=== PATIENT | female | born 1975 | race Caucasian/White ===

== ENCOUNTER 2018-04-19 11:04 | Inpatient (IN) | payer OTHER ==
[~2018-04-19] VITALS: Ht 162.6 cm; Wt 102.5 kg
[~2018-04-19 11:04] MED LIST: LISINOPRIL 40 MG; ORE25
[2018-04-19 11:06] VITALS: BP 136/97
--- NOTE | 2018-04-19 11:12 | NUR ---
PT TAKEN IN WHEELCHAIR TO ER BED 03
--- NOTE | 2018-04-19 11:15 | NUR ---
PATIENT PRESENTS TO ED WITH COMPLAINTS OF RLQ PAIN. PATIENT ALSO COMPLAINS OF N/V/D. SKIN IS PINK/WARM/DRY; AAOX4 WITH EVEN AND STEADY GAIT; LUNGS CLEAR BL; HR EVEN AND REGULAR; PT DENIES FEVER, CP, SOB, OR COUGH AT THIS TIME; PATIENT STATES PAIN OF 10/10 AT THIS TIME; VSS; PATIENT POSITIONED FOR COMFORT; HOB ELEVATED; BEDRAILS UP X1; BED DOWN. ER MD MADE AWARE OF PT STATUS.
[2018-04-19] MEDS ORDERED: MORPHINE SULFATE 4 MG/ML SYR IVP ONE (11:35)
[2018-04-19] MEDS ORDERED: NACL 0.9% 1,000 ML IV ONE (11:35)
[2018-04-19 11:48] LABS: BASOPHILS % (AUTO) 0.3 % (0.0-2.0); EOSINOPHILS # (AUTO) 0.1 K/uL (0-0.4); EOSINOPHILS % (AUTO) 1.3 % (0.0-4.0); HEMATOCRIT 41.9 % (36-48); LYMPHOCYTES # (AUTO) 2.4 K/uL (2.5-16.5); LYMPHOCYTES % (AUTO) 23.1 % (20.5-51.1); MEAN CORPUSCULAR HEMOGLOBIN 30 pg (27-31); MEAN CORPUSCULAR HGB CONC 34 g/dL (33-37); MEAN CORPUSCULAR VOLUME 90.1 fL (80-94); MONOCYTES # (AUTO) 0.5 K/uL (0.8-1.0); MONOCYTES % (AUTO) 4.9 % (1.7-9.3); NEUTROPHILS # (AUTO) 7.4 K/uL (1.8-7.7); NEUTROPHILS % (AUTO) 70.4 % (42.2-75.2); PLATELET COUNT (AUTO) 332 K/uL (140-450); RED BLOOD CELL COUNT(AUTO) 4.66 MIL/uL (4.20-5.40); RED CELL DISTRIBUTION WIDTH 13.7 % (11.6-13.7); WHITE BLOOD COUNT (AUTO) 10.5 K/uL (4.8-10.8)
[2018-04-19 12:04] LABS: ALBUMIN 3.6 g/dL (3.4-5.0); ANION GAP 12.5 (8-16); CARBON DIOXIDE 23.3 mmol/L (21-32); CREATININE 1.1 mg/dL (0.6-1.3); POTASSIUM 3.8 mmol/L (3.5-5.1); TOTAL BILIRUBIN 0.4 mg/dL (0.0-1.0)
[2018-04-19 12:31] LABS: BILIRUBIN,URINE NEGATIVE (NEGATIVE); BLOOD, URINE 3+ (NEGATIVE); COLOR,URINE YELLOW (YELLOW); LEUKOCYTE ESTERASE ,URINE TRACE (NEGATIVE); NITRITE, URINE POSITIVE (NEGATIVE); UGLUCOSE NEGATIVE (NEGATIVE)
[2018-04-19 12:34] LABS: APPEARANCE,URINE HAZY (CLEAR)
[2018-04-19 12:38] LABS: RBC,URINE 50-80 /HPF (0-5)
[2018-04-19 12:39] LABS: WBC,URINE 0-5 (RARE) /HPF (0-5)
--- NOTE | 2018-04-19 12:50 | NUR ---
PATIENT BACK FROM CT
[2018-04-19] MEDS ORDERED: cefTRIAXone 1,000 MG VIAL ONE (13:04)
--- NOTE | 2018-04-19 14:00 | NUR ---
Patient appears to be resting comfortably in bed. Vital Signs within normal limits. Respirations even and unlabored.
--- NOTE | 2018-04-19 15:25 | NUR ---
Patient will be admitted to care of DR. PANG. Admited to TELE. Will go to room 105A. Belongings list completed. Report to KASHMIR WALSH.
--- NOTE | 2018-04-19 15:31 | NUR ---
RECEIVED PT REPORT FROM ER NURSE. PT IS AWAKE, ALERT, OX4. AMBULATORY. CC: RLQ ABD PAIN. RECEIVED MORPHINE IN ER. ACCORDING TO ER NURSE, URINE DIP IS NEGATIVE FOR . PAIN 1/10 AT THIS TIME, TOLERABLE. DX SEPSIS 2ND TO UTI. LACTIC ACID 4.9, RECEIVED ROCEPHIN IN ER. IV NOTED TO RIGHT AC 20G, ASYMPTOMATIC. PLACE PT ON TELE. MRSA SCREENING DONE. VITALS TAKEN. INITIAL ASSESSMENT DONE. ORIENTED PT TO ROOM, CALL LIGHT WITHIN REACH. BED IN LOWEST POSITION. WILL CONTINUE TO MONITOR.
[2018-04-19 15:35] VITALS: BP 124/78
[2018-04-19] MEDS ORDERED: ACETAMINOPHEN 325 MG TAB PO PRN (15:35)
[2018-04-19] MEDS ORDERED: NACL 0.9% 2,500 ML IV SCH (15:50)
[2018-04-19] MEDS: NACL 0.9% 1,000 ML IV SCH ×2 (16:01→22:24)
[2018-04-19 16:16] LABS: PROTHROMBIN TIME 10.2 secs (10.8-13.4)
--- NOTE | 2018-04-19 16:20 | NUR ---
PAGED DR STEPHENS. WAITING FOR CALL BACK.
[2018-04-19] MEDS ORDERED: LISI-420 PO (16:36)
[2018-04-19] MEDS ORDERED: NIFE30TE8 PO (16:36)
[2018-04-19 16:37] LABS: FREE T4 (FREE THYROXINE) 0.96 ng/dL (0.76-1.46); MAGNESIUM 1.9 mg/dL (1.8-2.4); PHOSPHORUS 2.8 mg/dL (2.5-4.9); THYROID STIMULATING HORMONE 1.34 uIU/mL (0.34-3.74)
[2018-04-19] MEDS: KETOROLAC 30 MG/ML VIAL IVP PRN (17:14)
[2018-04-19] MEDS ORDERED: MORPHINE SULFATE 4 MG/ML SYR IVP PRN (18:15)
[2018-04-19] MEDS ORDERED: MORPHINE SULFATE 4 MG/ML SYR ONE (18:43)
--- NOTE | 2018-04-19 19:10 | NUR ---
RECE[facility]ED [facility] AT BEDSIDE FOR CONTINUITY OF CARE. PT IS SLEEPING. IV NOTED RAC 20G. NS 150ML/HR. NPO EXCEPT MEDS. AND AWAITING FOR SURGERY COMMERCIAL AGENT TO DAY. CONSENT SIGNED. BED LOWERED CALL LIGHT WITHIN REACH. WILL CONTINUE TO MONITOR.
[2018-04-19] MEDS ORDERED: BUPIVACAINE-MPF 0.5% 30 ML VIAL INJ ONE (19:12)
--- NOTE | 2018-04-19 19:15 | NUR ---
REPORT GIVEN TO WOOD POLE TREATER NURSE. PT IS IN STABLE CONDITION.
--- NOTE | 2018-04-19 19:15 | NUR ---
PT WAS PICKED UP BY OR. PT TELE BOX LEFT ON BED. PT IS OFF THE FLOOR.
[2018-04-19] MEDS ORDERED: ROCURONIUM 50 MG/5 ML VIAL IV ONE (19:22)
[2018-04-19] MEDS ORDERED: SUCCINYLCHOLINE CHLORIDE 200 MG/10 ML VIAL IVP ONE (19:22)
[2018-04-19] MEDS ORDERED: LIDOCAINE 2% 100 MG/5 ML SYR IVP ONE (19:22)
[2018-04-19] MEDS ORDERED: KETOROLAC 30 MG/ML VIAL ONE (19:22)
[2018-04-19] MEDS ORDERED: DEXAMETHASONE 4 MG/ML VIAL ONE (19:22)
[2018-04-19] MEDS ORDERED: DESFLURANE 240 ML BTL INH ONE (19:22)
[2018-04-19] MEDS ORDERED: ONDANSETRON 4 MG/2 ML VIAL ONE (19:22)
[2018-04-19] MEDS ORDERED: PROPOFOL 200 MG/20 ML VIAL IV ONE (19:22)
[2018-04-19] MEDS ORDERED: MIDAZOLAM 2 MG/2 ML VIAL ONE (19:29)
[2018-04-19] MEDS ORDERED: fentaNYL 0.05 MG/ML VIAL ONE (19:30)
[2018-04-19] MEDS ORDERED: ONDANSETRON 4 MG/2 ML VIAL IVP PRN (19:50)
[2018-04-19] MEDS ORDERED: ACETAMINOPHEN/CODEINE 300/30MG 1 TAB PO PRN (19:50)
[2018-04-19] MEDS ORDERED: IBUPROFEN 800 MG TAB PO PRN (19:50)
[2018-04-19 20:00] VITALS: BP 125/67
[2018-04-19] MEDS ORDERED: HYDROmorphone PFS 2 MG/ML SYR ONE (20:23)
[2018-04-19] MEDS: HYDROmorphone 1 MG/ML AMP IVP PRN ×4 (20:32→21:02)
--- NOTE | 2018-04-19 21:10 | NUR ---
RECEIVED REPORT FROM OR SX NURSE YUNIER AT BEDSIDE FOR CONTINUITY OF CARE. PT SLEEPING BUT WAKES UP UPON NAME CALLED. PT HAS IV HANGING NS 300 NEEDED TO BE INFUSED RATE OPEN LINE. PT HAS MORRISON PLACED AND HAS ORDERS FOR 24HR MORRISON PLACEMENT. PT HAS EVER STERILE GAUZE AND TAPE ON LOWER ABD. PT RECEIVED PAIN MEDS IN OR. OVARIAN AND CYST REMOVED. PT IS IN PAIN VITALS 97.5 16RR 99% O2 SAT 73HR 125/67.
--- NOTE | 2018-04-19 21:25 | NUR ---
15MIN POST VITALS 124/76 95% 76
--- NOTE | 2018-04-19 21:40 | NUR ---
30 MIN AFTER ARRIVED TO FLOOR : 117/63 90% 77HR
[2018-04-19] MEDS: DOCUSATE SODIUM 100 MG GELCAP PO SCH (21:47)
[2018-04-19] MEDS: MORPHINE SULFATE 4 MG/ML SYR IM/IVP PRN (21:47)
[2018-04-19] MEDS ORDERED: BLOOD GLUCOSE MONITORING 1 DEV DEV FS SCH (22:00)
--- NOTE | 2018-04-19 22:10 | NUR ---
1HR AFTER 123/73 90% ON RA 76HR
--- NOTE | 2018-04-19 22:40 | NUR ---
1HR 30 MIN AFTER 115/61 92% 80HR
[2018-04-19 23:59] VITALS: BP 118/65
[2018-04-20 04:00] VITALS: BP 112/63
[2018-04-20] MEDS: MORPHINE SULFATE 4 MG/ML SYR IM/IVP PRN (04:03)
[2018-04-20 07:24] LABS: BASOPHILS % (AUTO) 0.2 % (0.0-2.0); HEMATOCRIT 32.7 % (36-48); HEMOGLOBIN 10.6 g/dL (12.0-16.0); LYMPHOCYTES # (AUTO) 1.3 K/uL (2.5-16.5); LYMPHOCYTES % (AUTO) 8.6 % (20.5-51.1); MEAN CORPUSCULAR HEMOGLOBIN 30 pg (27-31); MEAN CORPUSCULAR HGB CONC 32 g/dL (33-37); MEAN CORPUSCULAR VOLUME 92.1 fL (80-94); MONOCYTES # (AUTO) 0.5 K/uL (0.8-1.0); MONOCYTES % (AUTO) 3.5 % (1.7-9.3); NEUTROPHILS # (AUTO) 13.3 K/uL (1.8-7.7); NEUTROPHILS % (AUTO) 87.7 % (42.2-75.2); PLATELET COUNT (AUTO) 317 K/uL (140-450); RED BLOOD CELL COUNT(AUTO) 3.55 MIL/uL (4.20-5.40); RED CELL DISTRIBUTION WIDTH 13.5 % (11.6-13.7); WHITE BLOOD COUNT (AUTO) 15.2 K/uL (4.8-10.8)
--- NOTE | 2018-04-20 07:30 | NUR ---
RECEIVED ON BED AAOX4. NO SOB NOTED. NO C/O PAIN AT THIS TIME. IV TO RT AC PATENT AND INTACT. CHEST, CLEAR. ABDOMEN SOFT, BOWEL SOUNDS PRESENT BUT HYPOACTIVE, ENCOURAGED TO AMBULATE OUT OF BED. NPO MAINTAINED EXCEPT FOR MEDS. WITH MORRISON DRAINING CLEAR DARK ALMA URINE IN SMALL AMOUNTS, WILL CONTINUE TO MONITOR PT. SCD'S IN PLACE. INSTRUCTED PT TO CALL FOR ASSISTANCE, CALL LIGHT WITHIN REACH. PT VERBALIZED UNDERSTANDING.
[2018-04-20 07:41] LABS: CHOL/HDL RATIO 5.2 (1-4.5); MAGNESIUM 1.8 mg/dL (1.8-2.4); PHOSPHORUS 3.5 mg/dL (2.5-4.9)
[2018-04-20 07:48] LABS: ANION GAP 12.3 (8-16); CARBON DIOXIDE 25.7 mmol/L (21-32)
[2018-04-20 08:00] VITALS: BP 123/73
--- NOTE | 2018-04-20 09:00 | NUR ---
MORRISON IS DRAINING MODERATE AMOUNTS OF CLEAR ALMA URINE NOW.
[2018-04-20] MEDS: NACL 0.9% 1,000 ML IV SCH ×3 (09:03→18:24)
[2018-04-20] MEDS: DOCUSATE SODIUM 100 MG GELCAP PO SCH ×2 (09:04→20:57)
[2018-04-20] MEDS: LISINOPRIL 20 MG TAB PO SCH (09:05)
[2018-04-20] MEDS: LACTOBACILLUS RHAMNOSUS GG 1 EACH CAP PO SCH (09:05)
[2018-04-20] MEDS: NIFEdipine 30 MG TABER PO SCH (09:06)
[2018-04-20] MEDS: HYDROCHLOROTHIAZIDE 25 MG TAB PO SCH (09:09)
[2018-04-20] MEDS: KETOROLAC 30 MG/ML VIAL IVP PRN ×2 (09:12→12:50)
--- NOTE | 2018-04-20 11:00 | NUR ---
PHYSICAL THERAPY ON GOING AT THE BEDSIDE.
[2018-04-20 12:00] VITALS: BP 122/81
[2018-04-20] MEDS ORDERED: MORPHINE SULFATE 2 MG/ML SYR IVP PRN (12:30)
[2018-04-20] MEDS ORDERED: INSULIN LISPRO SLIDING SCALE 100 UNITS/ML VIAL SUBQ PRN (12:30)
[2018-04-20] MEDS ORDERED: DEXTROSE 50% 50 ML SYR IVP PRN (12:45)
--- NOTE | 2018-04-20 13:20 | NUR ---
PT SITTING AT THE SIDE OF THE BED, ACTIVITY TOLERATED FAIR. Addendum: 04/20/18 at 1856 by Myriam Mackay RN ACTIVITY TOLERATED FAIRLY.
--- NOTE | 2018-04-20 15:15 | NUR ---
OFFERED ICE CHIPS, PT TOLERATED WELL, NO N&V NOTED.
[2018-04-20] MEDS: BLOOD GLUCOSE MONITORING 1 DEV DEV FS SCH ×2 (17:01→20:56)
--- NOTE | 2018-04-20 17:15 | NUR ---
PT TALKING TO FAMILY AT THE BEDSIDE. NO COMPLAINTS MADE.
[2018-04-20] MEDS: HYDROcodone/APAP 5/325 MG 1 TAB TAB PO PRN (18:01)
--- NOTE | 2018-04-20 19:25 | NUR ---
PT TALKING TO FAMILY MEMBERS. NO SOB NOTED. NO COMPLAINTS MADE. WILL ENDORSE TO NEXT SHIFT NURSE FOR CONTINUITY OF CARE.
--- NOTE | 2018-04-20 19:30 | NUR ---
RECEIVED REPORT FROM DAY NURSE AT BEDSIDE FOR TRANSFER OF CARE. PT IN STABLE CONDITION. PT HAD FAMILY AT BEDSIDE, PT IN LOW BED WITH SIDE RAILS UP X2. SHE IS ALERT AND ORIENTED X4 AND UPPER SORBIAN SPEAKING. SHE SITTING IN BED WITH HOB UP 45%. IV FLUSHED PATENT AND RUNNING N/S AT 150. PT DRESSING DRY AND INTACT AT THIS TIME, PT HAS NO C/O VOICED JUST C/O ABOUT A LOT OF GAS AND BLOATING. PT EDUCATED REGARDING POST SURGICAL GAS.
--- NOTE | 2018-04-20 21:00 | NUR ---
PT FINGER STICK WAS 189 HOWEVER PT REFUSED INSULIN COVERAGE.
[2018-04-21] MEDS: NACL 0.9% 1,000 ML IV SCH ×3 (01:04→13:14)
[2018-04-21] MEDS: HYDROcodone/APAP 5/325 MG 1 TAB TAB PO PRN ×4 (01:05→15:21)
--- NOTE | 2018-04-21 02:00 | NUR ---
PT AMBULATED INDEPENDENTLY TO TOILET AND PASSED SOME GAS BUT NO BM YET. BOWEL SOUNDS ACTIVE ALL 4 QUADS.
[2018-04-21] MEDS: BLOOD GLUCOSE MONITORING 1 DEV DEV FS SCH ×2 (05:18→11:30)
--- NOTE | 2018-04-21 05:36 | NUR ---
PT FINGERSTICK WAS 202 HOWVWER SHE REFUSED INSULIN COVERAGE AT THIS TIME. PT C/O 05/19 PAIN AND REQUESTED NORCO FOR PAIN REFLEIF. LABS DRAWN AT BEDSIDE. PT SLOWLY AMBULATING TO BATHROOM.
[2018-04-21 06:00] VITALS: BP 125/74
--- NOTE | 2018-04-21 07:15 | NUR ---
TRANSFER OF CARE TO DAYSHIFT NURSE JAMES RN PT IN STABLE CONDITION
--- NOTE | 2018-04-21 07:16 | NUR ---
RECEIVED BEDSIDE REPORT FROM BARBER APPRENTICE NURSE. PATIENT IS SLEEPING. NO SIGNS OF DISTRESS ON ROOM AIR. PATIENT IS S/P OOPHORECTOMY. ABDOMINAL DRESSING IS CLEAN, DRY AND INTACT. IV ON L HAND 20G INFUSING NS AT 150. IV IS CLEAN, DRY AND INTACT. BED IN LOW POSITION. CALL LIGHT WITHIN REACH. WILL CONTINUE TO MONITOR THE PATIENT.
[2018-04-21 07:32] LABS: BASOPHILS # (AUTO) 0.1 K/uL (0.00-0.22); BASOPHILS % (AUTO) 0.5 % (0.0-2.0); EOSINOPHILS # (AUTO) 0.1 K/uL (0-0.4); EOSINOPHILS % (AUTO) 0.5 % (0.0-4.0); HEMATOCRIT 27.3 % (36-48); HEMOGLOBIN 9.4 g/dL (12.0-16.0); LYMPHOCYTES # (AUTO) 2.7 K/uL (2.5-16.5); LYMPHOCYTES % (AUTO) 22.2 % (20.5-51.1); MEAN CORPUSCULAR HEMOGLOBIN 31 pg (27-31); MEAN CORPUSCULAR HGB CONC 34 g/dL (33-37); MEAN CORPUSCULAR VOLUME 90.4 fL (80-94); MONOCYTES # (AUTO) 0.7 K/uL (0.8-1.0); NEUTROPHILS # (AUTO) 8.7 K/uL (1.8-7.7); NEUTROPHILS % (AUTO) 70.8 % (42.2-75.2); PLATELET COUNT (AUTO) 267 K/uL (140-450); RED BLOOD CELL COUNT(AUTO) 3.02 MIL/uL (4.20-5.40); RED CELL DISTRIBUTION WIDTH 13.5 % (11.6-13.7); WHITE BLOOD COUNT (AUTO) 12.3 K/uL (4.8-10.8)
[2018-04-21 07:47] LABS: ANION GAP 14.7 (8-16); CARBON DIOXIDE 23.9 mmol/L (21-32); CREATININE 0.7 mg/dL (0.6-1.3); POTASSIUM 3.6 mmol/L (3.5-5.1)
[2018-04-21 08:00] VITALS: BP 139/74
--- NOTE | 2018-04-21 08:34 | NUR ---
PATIENT HAS BEEN SCREENED AND CATEGORIZED HIGH NUTRITION RISK. PATIENT WILL BE SEEN WITHIN 1-2 DAYS OF ADMISSION. 04/20/18 04/21/[address]
[2018-04-21] MEDS: LACTOBACILLUS RHAMNOSUS GG 1 EACH CAP PO SCH (09:44)
[2018-04-21] MEDS: LISINOPRIL 20 MG TAB PO SCH (09:44)
[2018-04-21] MEDS: HYDROCHLOROTHIAZIDE 25 MG TAB PO SCH (09:45)
[2018-04-21] MEDS: DOCUSATE SODIUM 100 MG GELCAP PO SCH (09:46)
[2018-04-21] MEDS: NIFEdipine 30 MG TABER PO SCH (09:46)
--- NOTE | 2018-04-21 09:51 | NUR ---
ADMINISTERED MEDS. PATIENT TOLERATED WELL. SHE REFUSED HEPARIN. EXPLAINED THE RISKS. SHE STILL REFUSED. BED IN LOW POSITION. CALL LIGHT WITHIN REACH. WILL CONTINUE TO MONITOR THE PATIENT.
--- NOTE | 2018-04-21 12:55 | NUR ---
ADMINISTERED MEDS. PATIENT TOLERATED WELL. IV IS CLEAN, DRY AND INTACT. BED IN LOW POSITION. CALL LIGHT WITHIN REACH. WILL CONTINUE TO MONITOR THE PATIENT.
--- NOTE | 2018-04-21 13:00 | NUR ---
CLEANSED WOUND WITH NS, PAT DRY AND CHANGED DRESSING. PATIENT TOLERATED WELL. BED IN LOW POSITION. WILL CONTINUE TO MONITOR
--- NOTE | 2018-04-21 14:09 | NUR ---
FAXED OPERATIVE REPORT AND PROGRESS NOTE TO ALDA [phone] PHONE [phone] X [phone] [place]. CALLED HOLLY AND INFORMED HER PATIENT IS BEING DISCHARGED TODAY.
--- NOTE | 2018-04-21 14:17 | NUR ---
FAXED ;OPERATIVE REPORT AND PROGRESS NOTE TO ALDA [phone] PHONE [phone] HO[place], EX [phone]. I CALLED HOLLY AND INFORMED HER PATIENT WAS BEING DISCHARGED TODAY.
[2018-04-21] MEDS ORDERED: LEVO750T2 PO (14:53)
[2018-04-21] MEDS ORDERED: ACET-9525 PO (14:53)
--- NOTE | 2018-04-21 16:29 | NUR ---
EDUCATED PATIENT ON DISEASE PROCESS. HOW TO CARE FOR HER WOUND. ABN S/SX AND WHEN TO GO TO THE NEAREST ER. EDUCATED HER ON MEDS. EXPLAINED TO HER HER FOLLOW UP APPOINTMENTS. ALL PAPER WORK SIGNED. PATIENT VERBALIZED UNDERSTANDING. REMOVED IV. IV TIP IS INTACT. REMOVED ID BANDS. PATIENT IS GATHERING HER BELONGINGS AND WILL CHANGE AND WILL AWAIT HER RIDE. BED IN LOW POSITION. WILL CONTINUE TO MONITOR THE PATIENT.
--- NOTE | 2018-04-21 16:45 | NUR ---
PATIENT LEFT WITH DAUGHTER AND [employer] WEBSPHERE COMMERCE DEVELOPER IN STABLE CONDITION. SHE LEFT IN A WHEELCHAIR
== END 2018-04-21 16:45 | disposition home or self-care (01) | DRG 513 ==
LOC: MED 11:04 → MTU 14:42
PROVIDERS: ADMIT Family Medicine; ATTEND Family Medicine
PROC: 0UB00ZZ Excision of Right Ovary, Open Approach (ICD-10-PCS; principal; 2018-04-19 19:30)
DX: D27.0 Benign neoplasm of right ovary (principal); N17.0 Acute kidney failure with tubular necrosis; E66.01 Morbid (severe) obesity due to excess calories; E87.1 Hypo-osmolality and hyponatremia; E87.2 Acidosis; R65.10 Systemic inflammatory response syndrome (SIRS) of non-infectious origin without acute organ dysfunction; N83.511 Torsion of right ovary and ovarian pedicle; N39.0 Urinary tract infection, site not specified; I10 Essential (primary) hypertension; E11.9 Type 2 diabetes mellitus without complications; R19.09 Other intra-abdominal and pelvic swelling, mass and lump; K21.9 Gastro-esophageal reflux disease without esophagitis; Z68.38 Body mass index [BMI] 38.0-38.9, adult; Z90.49 Acquired absence of other specified parts of digestive tract
CPT/HCPCS: 36415; 71045; 76705; 76856; 80048; 80053; 81001; 81025; 82150; 82948; 83036; 83605; 83690; 83735; 84100; 84439; 84443; 84484; 85025; 85610; 85730; 87040; 87081; 87086; 87186; 88307; 93005; 96374; 97110; 99285; J0330; J0696; J1100; J1170; J1644; J1815; J1885; J2001; J2250; J2270; J2405; J2704; J3010; J3490; J7030; J7060; Q0092

== ENCOUNTER 2018-04-27 21:28 | Emergency (ER) | payer OTHER ==
[~2018-04-27] VITALS: Ht 162.6 cm; Wt 103.4 kg
[~2018-04-27 21:28] MED LIST changes: +ACET-9525 PO; +LEVO750T2 PO; +LISI-420 PO; -LISINOPRIL 40 MG; +NIFE30TE8 PO
[2018-04-27 21:35] VITALS: BP 141/71
--- NOTE | 2018-04-27 21:42 | NUR ---
PT AMBULATED TO ER BED 02
--- NOTE | 2018-04-27 21:45 | NUR ---
42 y/o f w/c/o 8 DAYS S/P-OP OVARIAN CYST REMOVAL. EVER WERE REMOVED DURING OFFICE VISIT TODAY BY PMD. PT C/O DRAINAGE FROM INCISION SITE, AND SMALL DEHICENCE SINCE TODAY S/P STAPLE REMOVAL. NO BLEEDING OR DRAINAGE NOTED. ER MADE AWARE.
[2018-04-27 22:30] VITALS: BP 110/66
--- NOTE | 2018-04-27 22:30 | NUR ---
Patient discharged with v/s stable. Written and verbal after care instructions given and explained. Patient alert, oriented and verbalized understanding of instructions. Ambulatory with steady gait. All questions addressed prior to discharge. ID band removed. Patient advised to follow up with PMD TOMORROW OR RETURN BACK IF CONDITION WORSENS. Rx of KEFLEX, AND NORCO given. Patient educated on indication of medication including possible reaction and side effects. Opportunity to ask questions provided and answered.
== END 2018-04-27 22:30 | disposition home or self-care (01) ==
LOC: MED 21:28
DX: Z48.01 Encounter for change or removal of surgical wound dressing (principal); E11.9 Type 2 diabetes mellitus without complications; I10 Essential (primary) hypertension; Z79.899 Other long term (current) drug therapy
CPT/HCPCS: 99283

== ENCOUNTER 2018-07-05 01:33 | Inpatient (IN) | payer OTHER ==
[~2018-07-05] VITALS: Ht 162.6 cm; Wt 86.2 kg
--- NOTE | 2018-07-05 01:42 | NUR ---
PT TAKEN TO BED 2
[2018-07-05 01:46] VITALS: BP 128/89
--- NOTE | 2018-07-05 02:03 | NUR ---
Dr. Daniel evaluating patient at bedside. Female Tooling Supervisor accompanied female patient for Rectal Exam.
[2018-07-05] MEDS ORDERED: metroNIDAZOLE 500 MG/NS PREMIX 100 ML IV ONE (02:10)
[2018-07-05] MEDS ORDERED: ONDANSETRON 4 MG/2 ML VIAL IVP ONE (02:10)
[2018-07-05] MEDS ORDERED: MORPHINE SULFATE 4 MG/ML SYR IVP ONE ×2 (02:10→03:25)
--- NOTE | 2018-07-05 03:08 | NUR ---
PT BIB FAMILY FOR RECTAL PAIN THAT HAS BEEN INTERMITTENT SINCE APRIL. PT REPORTS WORSENING PAIN TONIGHT THAT WAS "UNBEARABLE". PT STATES PAIN STARTED AFTER COLONOSCOPY. PT DENIES BLEEDING TO RECTUM. PT IS LAYING IN BED, FACIAL GRIMACING, FAMILY AT BEDSIDE. PMH HTN, DM
[2018-07-05] MEDS ORDERED: NACL 0.9% 1,000 ML IV SCH (03:09)
[2018-07-05] MEDS ORDERED: ONDANSETRON 4 MG/2 ML VIAL IVP PRN (03:10)
[2018-07-05] MEDS ORDERED: HYDROcodone/APAP 7.5/325 MG 1 TAB PO PRN (03:10)
[2018-07-05] MEDS ORDERED: ACETAMINOPHEN 325 MG TAB PO PRN (03:10)
[2018-07-05 03:21] LABS: BASOPHILS % (AUTO) 0.3 % (0.0-2.0); EOSINOPHILS # (AUTO) 0.1 K/uL (0-0.4); EOSINOPHILS % (AUTO) 0.7 % (0.0-4.0); HEMOGLOBIN 11.7 g/dL (12.0-16.0); LYMPHOCYTES # (AUTO) 2.3 K/uL (2.5-16.5); LYMPHOCYTES % (AUTO) 18.6 % (20.5-51.1); MEAN CORPUSCULAR HEMOGLOBIN 30 pg (27-31); MEAN CORPUSCULAR HGB CONC 34 g/dL (33-37); MEAN CORPUSCULAR VOLUME 86.4 fL (80-94); MONOCYTES # (AUTO) 0.7 K/uL (0.8-1.0); MONOCYTES % (AUTO) 5.3 % (1.7-9.3); NEUTROPHILS # (AUTO) 9.2 K/uL (1.8-7.7); NEUTROPHILS % (AUTO) 75.1 % (42.2-75.2); PLATELET COUNT (AUTO) 281 K/uL (140-450); RED BLOOD CELL COUNT(AUTO) 3.94 MIL/uL (4.20-5.40); RED CELL DISTRIBUTION WIDTH 14.4 % (11.6-13.7); WHITE BLOOD COUNT (AUTO) 12.3 K/uL (4.8-10.8)
[2018-07-05 03:38] LABS: ALBUMIN 3.7 g/dL (3.4-5.0); ANION GAP 10.9 (8-16); CARBON DIOXIDE 28.2 mmol/L (21-32); CREATININE 0.8 mg/dL (0.6-1.3); TOTAL BILIRUBIN 0.8 mg/dL (0.0-1.0)
[2018-07-05 03:41] LABS: POTASSIUM 2.1 mmol/L (3.5-5.1)
[2018-07-05 03:54] LABS: CHOL/HDL RATIO 3.1 (1-4.5); FREE T4 (FREE THYROXINE) 1.22 ng/dL (0.76-1.46); MAGNESIUM 1.8 mg/dL (1.8-2.4); PHOSPHORUS 2.5 mg/dL (2.5-4.9); THYROID STIMULATING HORMONE 1.37 uIU/mL (0.34-3.74)
[2018-07-05] MEDS ORDERED: LISI-420 PO (03:55)
[2018-07-05] MEDS ORDERED: ORE25 PO (03:55)
--- NOTE | 2018-07-05 04:00 | NUR ---
Patient will be admitted to care of DR BARDALES. Admited to TELE. Will go to room 104-B. Belongings list completed. Report to KASHMIR MAR.
[2018-07-05 04:05] VITALS: BP 116/68
--- NOTE | 2018-07-05 04:05 | NUR ---
PT ARRIVED ON UNIT VIA GURNEY, PT AMBULATED TO BED, TOLERATED WELL, RECEIVED BEDSIDE REPORT FROM ER NURSE CAITLYN MARLOW, PT STABLE, NO DISTRESS NOTED, DROWSY, PT ON ROOM AIR, NO SOB, IV TO R AC 20G PATENT, INTACT, FAMILY AT BEDSIDE, ORIENT PT TO ROOM, BED, CALL LIGHT, PHONE, PT STATED UNDERSTANDING, MRSA SWAB TAKEN, V/S TAKEN WNL, INITIAL ASSESSMENT DONE, ALL SAFETY PRECAUTION MET, WILL CONTINUE TO MONITOR.
[2018-07-05] MEDS ORDERED: NACL 0.9% 1,000 ML IV ONE (04:10)
[2018-07-05] MEDS ORDERED: KCL 20 MEQ/WATER INJ PREMIX 200 ML IV SCH (04:15)
[2018-07-05] MEDS ORDERED: POTASSIUM CHLORIDE 10 MEQ TABER PO ONE (04:30)
[2018-07-05] MEDS ORDERED: POTASSIUM CHLORIDE 10 MEQ TABER PO SCH (04:30)
--- NOTE | 2018-07-05 04:39 | NUR ---
MEDICATION ORDERED GIVEN, PT TOLERATED WELL, NO DISTRESS NOTED, CALL LIGHT WITHIN REACH, WILL CONTINUE TO MONITOR.
--- NOTE | 2018-07-05 05:07 | NUR ---
PT STATED FEELING PAIN, CALLED DR. PATTEN REGARDING PT PAIN, STATED UNDERSTANDING AND WILL ORDER MEDICATION.
[2018-07-05] MEDS ORDERED: KETOROLAC 30 MG/ML VIAL IM PRN (05:10)
--- NOTE | 2018-07-05 05:28 | NUR ---
TORADOL ORDERED FOR PT PAIN, PHARMACY STILL HAS NOT VERIFIED IT, OVERWRITE MEDICATION ON PYXIS.
[2018-07-05] MEDS ORDERED: KETOROLAC 30 MG/ML VIAL ONE (05:31)
--- NOTE | 2018-07-05 05:31 | NUR ---
PAIN MEDICATION GIVEN PER MD ORDER, PT COMPLAINING OF PAIN 04/19. NO DISTRESS NOTED, PT TOLERATED WELL, CALL LIGHT WITHIN REACH, WILL CONTINUE TO MONITOR.
[2018-07-05] MEDS: DEXT 5% / NACL 0.9% 500 ML IV SCH ×4 (05:51→20:10)
--- NOTE | 2018-07-05 07:22 | NUR ---
RECEIVED REPORT FROM NIGHTSHIFT NURSE AT BEDSIDE. PATIENT IS AWAKE AT THIS TIME. PATIENT HAS IV ACCESS ON HER RIGHT AC 20G RUNNING POTASSIUM AND NORMAL SALINE. NO DISTRESS NOTED. NO PAIN NOTED AT THIS TIME. PATIENT IS ALERT AND ORIENTED X4. UPDATED BOARD IN PATIENT'S ROOM. LOWERED BED TO LOWEST SETTING. WILL CONTINUE TO MONITOR PATIENT.
--- NOTE | 2018-07-05 07:22 | NUR ---
ENDORSED PT TO DAY SHIFT NURSE KWABENA RN, PT IN STABLE CONDITION, NO DISTRESS NOTED, CALL LIGHT WITHIN REACH.
[2018-07-05 08:00] VITALS: BP 95/59
[2018-07-05] MEDS: LACTOBACILLUS RHAMNOSUS GG 1 EACH CAP PO SCH (08:23)
[2018-07-05] MEDS: DOCUSATE SODIUM 100 MG GELCAP PO SCH ×2 (08:23→20:08)
--- NOTE | 2018-07-05 08:23 | NUR ---
PATIENT PRESENTS WITH NAUSEA. ADMINISTERED ZOFRAN TO PATIENT.
[2018-07-05] MEDS ORDERED: HYDROCHLOROTHIAZIDE 25 MG TAB PO SCH (09:00)
[2018-07-05] MEDS: LISINOPRIL 20 MG TAB PO SCH (09:00)
[2018-07-05] MEDS ORDERED: metroNIDAZOLE 500 MG/NS PREMIX 100 ML IV SCH (11:00)
--- NOTE | 2018-07-05 11:05 | NUR ---
PT LEFT THE UNIT FOR CT VIA WHEELCHAIR IN STABLE CONDITION.
[2018-07-05 11:17] LABS: ANION GAP 8.3 (8-16); CARBON DIOXIDE 31.3 mmol/L (21-32); CREATININE 0.9 mg/dL (0.6-1.3); POTASSIUM 3.6 mmol/L (3.5-5.1)
[2018-07-05 12:00] VITALS: BP 108/67
--- NOTE | 2018-07-05 13:00 | NUR ---
NO DISTRESS AT THIS TIME. WILL CONTINUE TO MONITOR PATIENT.
--- NOTE | 2018-07-05 15:09 | NUR ---
PT RESTING AT THIS TIME. NO DISTRESS NOTED. WILL CONTINUE TO MONITOR PATIENT.
[2018-07-05 16:00] VITALS: BP 105/53
--- NOTE | 2018-07-05 17:29 | NUR ---
PATIENT FAMILY MEMBER AT BEDSIDE. PATIENT IS RESTING AT THIS TIME. WILL CONTINUE TO MONITOR PATIENT.
[2018-07-05] MEDS ORDERED: MORPHINE SULFATE 2 MG/ML SYR IVP PRN (17:50)
--- NOTE | 2018-07-05 19:20 | NUR ---
GAVE REPORT TO NIGHTSHIFT NURSE. PATIENT IN STABLE CONDITION.
--- NOTE | 2018-07-05 19:25 | NUR ---
RECEIVED REPORT FROM KWABENA MARLOW DAYSHIFT NURSE AT BEDSIDE FOR CONTINUITY OF CARE, PT IN STABLE CONDITION, FAMILY AT BEDSIDE.
[2018-07-05 20:00] VITALS: BP 108/66
--- NOTE | 2018-07-05 20:30 | NUR ---
PT SITTING IN BED WITH C/O OF 7/10 PAIN IN HER RECTUM. PT SAID THAT SHE FELT READY TO HAVE A BM AND WAS CONCERNED THAT IT WOULD HURT HER EVEN MORE, PT GIVEN PRN MORPHINE IV PUSH. PT HAS HYPERACTIVE BOWEL SOUNDS IN ALL 4 QUADS. SHE ATE ONLY 1/3 OF HER DINNER BECAUSE SHE SAID THAT SHE KNOW THAT HAVING A BM WOULD HURT. V/S FOLLOWS T 98.2 P 61 R 20 B/P 108/66 02 96 WITH R/A. BED IN LOW POSITION, CALL JEFFERS IN REACH AND FAMILY AT BEDSIDE.
[2018-07-05] MEDS: HYDROcodone/APAP 10/325 MG 1 TAB TAB PO PRN (22:29)
--- NOTE | 2018-07-05 22:30 | NUR ---
PT HAD A MEDIUM LOOSE BM, NO BLEEDING NOTED. PT AMBULATED TO THE BED AND C/O 5/10 PAIN IN RECTUM. PT GIVEN NORCO 10/325MG WILL CONTINUE TO MONITOR PT FOR PAIN AND BLEEDING. PT REMINDED ABOUT THE NPO STATUS AFTER MIDNIGHT.
[2018-07-06] VITALS: BP 104/59
--- NOTE | 2018-07-06 00:30 | NUR ---
PT IN BED ASLEEP IV RUNNING D5 AND N/S ORDERED NO S/S OF PAIN OR DISTRESS NOTED. V/S FOLLOWS T 98.3 P82 R 18 B/P 118/70 02 98% ON R/A. PT GIVEN ANOTHER BLANKET REQUESTED, CALL JEFFERS IN REACH.
[2018-07-06] MEDS: DEXT 5% / NACL 0.9% 500 ML IV SCH ×2 (01:15→05:46)
--- NOTE | 2018-07-06 02:00 | NUR ---
PT ASLEEP IN LOW BED WITH SIDE RAILS UP X2, NO S/S OF PAIN OR DISTRESS NOTED. IV SITE INTACT AND RUNNING D5 AND N/S AT 100MLS/HR.
[2018-07-06] MEDS: metroNIDAZOLE 500 MG/NS PREMIX 100 ML IV SCH ×3 (05:42→21:00)
--- NOTE | 2018-07-06 05:51 | NUR ---
PT AMBULATED TO THE BATHROOM AND BACK NO C/O VOICED FLAGYL RUNNING PIGGYBACK AT 100MLS/HR NO ADVERSE EFFECTS.
[2018-07-06 05:54] LABS: BASOPHILS % (AUTO) 0.4 % (0.0-2.0); EOSINOPHILS # (AUTO) 0.1 K/uL (0-0.4); EOSINOPHILS % (AUTO) 1.8 % (0.0-4.0); HEMATOCRIT 30.6 % (36-48); HEMOGLOBIN 10.6 g/dL (12.0-16.0); LYMPHOCYTES % (AUTO) 24.7 % (20.5-51.1); MEAN CORPUSCULAR HEMOGLOBIN 30 pg (27-31); MEAN CORPUSCULAR HGB CONC 35 g/dL (33-37); MEAN CORPUSCULAR VOLUME 86.7 fL (80-94); MONOCYTES # (AUTO) 0.6 K/uL (0.8-1.0); MONOCYTES % (AUTO) 7.7 % (1.7-9.3); NEUTROPHILS # (AUTO) 5.2 K/uL (1.8-7.7); NEUTROPHILS % (AUTO) 65.4 % (42.2-75.2); PLATELET COUNT (AUTO) 220 K/uL (140-450); RED BLOOD CELL COUNT(AUTO) 3.53 MIL/uL (4.20-5.40); RED CELL DISTRIBUTION WIDTH 14.5 % (11.6-13.7); WHITE BLOOD COUNT (AUTO) 7.9 K/uL (4.8-10.8)
[2018-07-06 06:15] LABS: MAGNESIUM 2.1 mg/dL (1.8-2.4); PHOSPHORUS 2.4 mg/dL (2.5-4.9)
[2018-07-06 06:19] LABS: ANION GAP 6.7 (8-16); CARBON DIOXIDE 32.9 mmol/L (21-32); CREATININE 0.8 mg/dL (0.6-1.3); POTASSIUM 3.6 mmol/L (3.5-5.1)
--- NOTE | 2018-07-06 07:05 | NUR ---
RECEIVED REPORT FROM OPTOMETRY PROFESSOR NURSE. PT LYING COMFORTABLY IN BED, NO SIGNS OF DISTRESS, RESPIRATIONS EVEN & UNLABORED. WILL CONTINUE TO MONITOR.
[2018-07-06 08:00] VITALS: BP 111/65
--- NOTE | 2018-07-06 09:03 | NUR ---
PATIENT HAS BEEN SCREENED AND CATEGORIZED MODERATE NUTRITION RISK. PATIENT WILL BE SEEN WITHIN 3-5 DAYS OF ADMISSION. 07/07/18 07/09/[address]
--- NOTE | 2018-07-06 09:09 | NUR ---
CM NOTE INITIAL REVIEW, ADMITTING ORDER, H&P, CONSULTATION NOTE, LIST OF MEDS, FAXED TO ALDA [phone] # [phone] HO[place] EXT [phone]
[2018-07-06] MEDS: LACTOBACILLUS RHAMNOSUS GG 1 EACH CAP PO SCH (09:21)
[2018-07-06] MEDS: HYDROCHLOROTHIAZIDE 25 MG TAB PO SCH (09:21)
[2018-07-06] MEDS: DOCUSATE SODIUM 100 MG GELCAP PO SCH ×2 (09:21→21:32)
[2018-07-06] MEDS: LISINOPRIL 20 MG TAB PO SCH (09:22)
[2018-07-06] MEDS: DEXT 5% /NACL 0.9% 1,000 ML IV SCH ×2 (10:54→20:54)
--- NOTE | 2018-07-06 12:22 | NUR ---
PT NOW DECIDED TO GO WITH DR CHEATHAM FOR SURGERY, DR GOODWIN MADE AWARE.
--- NOTE | 2018-07-06 14:25 | NUR ---
Community Affairs Manager Note: Director of Telemetry and Med/Surg Joann came to Case Management/Community Affairs Manager office and informed myself and case making machine operator Ira patient had expressed having a concern regarding . Director Joann stated she was following up regarding this matter and wanted to make us aware of situation.
--- NOTE | 2018-07-06 15:30 | NUR ---
Care Program Resident Note: I met with patient at bedside. Patient stated she did not want to be her physician because she felt that he was not attentive to her needs and concerns. I told her that our Administration Dept and/social work therapist of Telemetry/Med Surg Joann are following up regarding her concern and will meet with her today to discuss this matter and offer solution/s. She verbalized understanding and thanked me for meeting with her.
--- NOTE | 2018-07-06 15:56 | NUR ---
Vp Lab Note: I met with patient at bedside. Per patient, she would like to have clarification/explanation between diagnostic and surgery/procedure options, director of telemetry/med surg Joann made aware.
[2018-07-06 16:00] VITALS: BP 121/67
--- NOTE | 2018-07-06 16:30 | NUR ---
THIS PATIENT WAS REFERRED TO ADMINISTRATION BY YARD RIGGER, UNHAPPY WITH THE SERVICES OF DR. CHEATHAM. I SPOKE TO HER AT LENGTH REGARDING HER CONCERNS AND OPTIONS. SHE STATED "I DO NOT WANT TO PROCEED WITH DR. CHEATHAM, I FELT LIKE HE WILL NOT TAKE CARE OF MY PROBLEM". I RE-ASSURED HER THAT I WILL DISCUSS HER CONCERNS WITH HER ATTENDING AND SEE WHAT WE OPTIONS WE CAN EXPLORE. PATIENT VERBALIZED UNDERSTANDING.
--- NOTE | 2018-07-06 16:35 | NUR ---
SPOKE TO DR. BARDALES OVER THE PHONE AND DISCUSSED PATIENT'S CONCERNS. DR. BARDALES WILL CALL ANOTHER SURGEON TO SEE THE PATIENT.
--- NOTE | 2018-07-06 16:35 | NUR ---
PER DR GOMEZ, PT IS OK TO EAT FOR NOW, WATER AND CRACKERS PROVIDED REQUESTED.
--- NOTE | 2018-07-06 16:40 | NUR ---
WENT BACK TO THE PATIENT AND INFORMED HER OF MY CONVERSATION WITH DR. BARDALES. DR. CHEATHAM WILL BE SIGNING OFF THE CASE. PATIENT VERBALIZED RESOLUTION OF HER CONCERNS WITH DR. CHEATHAM. WILL FOLLOW UP NEEDED.
--- NOTE | 2018-07-06 19:25 | NUR ---
REPORT GIVEN TO MEDICAL/SURGERY REGISTERED NURSE NURSE ANTOINE ARIAS IN STABLE CONDITION.
--- NOTE | 2018-07-06 19:26 | NUR ---
RECD. RESTING IN BED, AWAKE, A/OX4. RESPIRATION EVEN AND UNLABORED. IV OF D51/2 NS AT 100 ML/HR INFUSING RIGHT AC G22. AMBULATING TO THE BR. PLAN OF CARE FOR THE SHIFT DISCUSSED. VERBALIZED UNDERSTANDING. PAIN IN THE ANAL AREA AFTER HAVING A BM, 04/19. REPOSITIONED WITH PILLOW BEHIND BUTTOCKS, FEELS BETTER. WILL MEDICATE ORDERED.
[2018-07-06] MEDS: KETOROLAC 30 MG/ML VIAL IM/IVP PRN (19:53)
--- NOTE | 2018-07-06 20:30 | NUR ---
RESTING IN BED ALREADY SMILING, STATED FEELING BETTER, PAIN DECREASED /. FAMILY AT THE BEDSIDE.
[2018-07-06] MEDS ORDERED: SHARK OIL/PHENYLEPHRINE 60 GM TUBE TP PRN (21:00)
--- NOTE | 2018-07-06 21:00 | NUR ---
Patient's Plan of Care was discussed and reviewed with CORE LAYER MACHINE OPERATOR: JUANA SÁNCHEZ
--- NOTE | 2018-07-06 21:35 | NUR ---
COMPLAINT OF PAIN DURING BM, MEDICATED WITH COLACE ORDERED. REFUSED PREPARATION H, STATED SHE ALREADY TRIED IT AT HOME AND IT DIDN'T WORK FOR HER.
--- NOTE | 2018-07-06 23:30 | NUR ---
RESTING IN B3D, AWAKE. WHEN ASKED IF SHE IS IN PAIN AND NEED MEDICATION, STATED "I'M OK."
--- NOTE | 2018-07-07 | NUR ---
SLEEPING COMFORTABLY IN BED.
[2018-07-07] MEDS: DEXT 5% /NACL 0.9% 1,000 ML IV SCH ×3 (03:23→16:54)
[2018-07-07 04:00] VITALS: BP 97/47
--- NOTE | 2018-07-07 05:20 | NUR ---
BILATERAL LEG SEQUENTIALS APPLIED.
[2018-07-07] MEDS: metroNIDAZOLE 500 MG/NS PREMIX 100 ML IV SCH ×3 (05:47→20:22)
[2018-07-07] MEDS: SODIUM PHOS / POTASSIUM PHOS 1 PKT PDR PO SCH ×3 (07:03→17:34)
--- NOTE | 2018-07-07 07:15 | NUR ---
SLEEPING COMFORTABLY, CONDITION REMAIN STABLE. ENDORSED TO AM NURSES FOR CONTINUITY OF CARE.
--- NOTE | 2018-07-07 07:17 | NUR ---
RECEIVED REPORT FROM MEAL GRINDER TENDER NURSE. PT SLEEPING COMFORTABLY IN BED. RESPIRATIONS EVEN & UNLABORED. CALL LIGHT WITHIN REACH.
[2018-07-07 08:00] VITALS: BP 132/76
--- NOTE | 2018-07-07 08:11 | NUR ---
PT STATES SHE NEEDS TO GO TO BATHROOM BUT PT STATES SHE FEELS DIZZY, VITALS TAKEN, BP WNL, PT ASSISTED ONTO BEDPAN, CALL JEFFERS AT BEDSIDE, PT AWARE TO CALL NURSE WHEN FINISHED.
[2018-07-07 08:31] LABS: BASOPHILS % (AUTO) 0.4 % (0.0-2.0); EOSINOPHILS # (AUTO) 0.2 K/uL (0-0.4); HEMATOCRIT 29.7 % (36-48); HEMOGLOBIN 10.2 g/dL (12.0-16.0); LYMPHOCYTES # (AUTO) 1.5 K/uL (2.5-16.5); LYMPHOCYTES % (AUTO) 19.2 % (20.5-51.1); MEAN CORPUSCULAR HEMOGLOBIN 30 pg (27-31); MEAN CORPUSCULAR HGB CONC 35 g/dL (33-37); MEAN CORPUSCULAR VOLUME 86.7 fL (80-94); MONOCYTES # (AUTO) 0.5 K/uL (0.8-1.0); MONOCYTES % (AUTO) 6.7 % (1.7-9.3); NEUTROPHILS # (AUTO) 5.6 K/uL (1.8-7.7); NEUTROPHILS % (AUTO) 71.7 % (42.2-75.2); PLATELET COUNT (AUTO) 217 K/uL (140-450); RED BLOOD CELL COUNT(AUTO) 3.42 MIL/uL (4.20-5.40); RED CELL DISTRIBUTION WIDTH 14.8 % (11.6-13.7); WHITE BLOOD COUNT (AUTO) 7.8 K/uL (4.8-10.8)
--- NOTE | 2018-07-07 08:40 | NUR ---
CM NOTE ICONCURRENT REVIEW AND PROGRESS NOTE FAXED TO ALDA [phone] # [phone] [place] EXT [phone]
[2018-07-07 08:54] LABS: ANION GAP 7.7 (8-16); CARBON DIOXIDE 33.2 mmol/L (21-32); CREATININE 0.7 mg/dL (0.6-1.3)
[2018-07-07] MEDS: DOCUSATE SODIUM 100 MG GELCAP PO SCH ×2 (08:54→20:22)
[2018-07-07] MEDS: LACTOBACILLUS RHAMNOSUS GG 1 EACH CAP PO SCH (08:55)
[2018-07-07 08:56] LABS: POTASSIUM 2.9 mmol/L (3.5-5.1)
[2018-07-07 08:59] LABS: MAGNESIUM 1.9 mg/dL (1.8-2.4); PHOSPHORUS 3.2 mg/dL (2.5-4.9)
[2018-07-07] MEDS: HYDROCHLOROTHIAZIDE 25 MG TAB PO SCH (09:00)
[2018-07-07] MEDS: LISINOPRIL 20 MG TAB PO SCH (09:00)
--- NOTE | 2018-07-07 09:15 | NUR ---
09 OCLOCK MEDS GIVEN, PT LANCE PILLS WELL, BP MEDS HELD PER DR GOODWIN FOR DECREASED BP OVER NIGHT AND NOW 106/66, HR 44, WILL CONTINUE TO MONITOR
[2018-07-07] MEDS ORDERED: MORPHINE SULFATE 2 MG/ML SYR IVP PRN (09:40)
--- NOTE | 2018-07-07 10:26 | NUR ---
PT C/O SEVERE PAIN TO ANUS AFTER RECTAL EXAM BY DR. BRAY. PT IN TEARS. MORPHINE GIVEN ORDERED. WILL REASSESS.
[2018-07-07] MEDS ORDERED: LIDOCAINE JELLY 2% 30 ML TUBE TP SCH (10:30)
[2018-07-07] MEDS ORDERED: POTASSIUM CHLORIDE 40 MEQ, LIDOCAINE 1% 25 MG in NACL 0.9% 250 ML IV SCH (10:30)
[2018-07-07] MEDS ORDERED: BOWEL EVACUANT DRINK 4,000 ML PDS PO SCH (10:32)
--- NOTE | 2018-07-07 11:00 | NUR ---
PT C/O UNCOMFORTABLE BURNING SENSATION TO RT AC R/T POTASSIUM INFUSION. NO VISUAL SIGNS OF IV COMPLICATIONS TO RT AC. CURRENT RATE @ 68ML/HR. RATE ADJUSTED TO 34ML/HR. PT STATES FEELING BETTER. DENIES ANY FURTHER BURNING SENSATION TO IV SITE. WILL CONTINUE TO MONITOR.
--- NOTE | 2018-07-07 11:05 | NUR ---
Chain Mender Note: I met with patient at bedside. She reported she is very pleased with being referred to . She stated was gentle when he evaluated her. She expressed not having any concerns or questions at this time.
--- NOTE | 2018-07-07 11:26 | NUR ---
PT LYING COMFORTABLY IN BED, NO FACIAL GRIMACING. PT STATES SHE IS FEELING OK AT THE MOMENT.
[2018-07-07 12:00] VITALS: BP 115/70
--- NOTE | 2018-07-07 12:19 | NUR ---
RECEIVED BEDSIDE REPORT FROM PRIMARY NURSE. LUNCH RELIEF STOPPED POTASSIUM AND ADMINISTERED ORDERED FLAGYL. IV IS CLEAN, DRY AND INTACT. WILL CONTINUE TO MONITOR THE PATIENT. WILL START POTASSIUM AGAIN WHEN FLAGYL IS DONE. NO COMPLAINTS AT THIS TIME, PATIENT IS EATING AND WATCHING TV. BED IN LOW POSITION. CALL LIGHT WITHIN REACH
--- NOTE | 2018-07-07 13:20 | NUR ---
FLAGYL INFUSION COMPLETED. RESUMED POTASSIUM INFUSION AT 40ML/HR. PT SITTING UP AT EDGE OF BED AT THIS TIME, DENIES ANY DISCOMFORT. SPOUSE SITTING AT BEDSIDE. ENCOURAGED PT TO CALL FOR NURSE NEEDED. VERBALIZED UNDERSTANDING. CALL LIGHT PLACED WITHIN REACH.
[2018-07-07] MEDS: HYDROcodone/APAP 10/325 MG 1 TAB TAB PO PRN (13:57)
--- NOTE | 2018-07-07 13:57 | NUR ---
PT C/O ANAL PAIN AGGRAVATED BY BM. NORCO GIVEN. ABLE TO TRANSFER FROM BED TO TOILET, & TOILET TO BED WITH GOOD BALANCE. CALL LIGHT WITHIN REACH. ENCOURAGED TO CALL FOR NURSE NEEDED. PT VERBALIZED UNDERSTANDING.
[2018-07-07 16:00] VITALS: BP 113/63
--- NOTE | 2018-07-07 16:00 | NUR ---
PT C/O 02/17 ANORECTAL PAIN, REQUESTS FOR TOPICAL LIDOCAINE JELLY. DR GOMEZ NOTIFIED OF PT REQUEST. PER MD, HE WILL INPUT ORDER. PT STATES PAIN IS TOLERABLE AT THIS TIME. ASSISTED TO SIDE-LYING POSITION FOR COMFORT.
--- NOTE | 2018-07-07 16:07 | NUR ---
ADMINISTERED LIDOCAINE JELLY TOPICALLY TO ANUS. NO OPEN LESIONS NOTED. PT ASSISTED TO SIDE-LYING POSITION IN BED TO PREVENT PRESSURE TO ANAL AREA. PT ABLE TO REPOSITION INDEPENDENTLY. CALL LIGHT PLACED WITHIN REACH. NO SIGNS OF DISTRESS NOTED.
[2018-07-07] MEDS ORDERED: LIDOCAINE JELLY 2% 5 ML TUBE TP SCH (16:30)
--- NOTE | 2018-07-07 17:10 | NUR ---
PT ON LEFT SIDE-LYING POSITION IN BED, DENIES ANY PAIN AT THIS TIME. PT DRINKING GOLYTELY WITH 2000ML LEFT IN BOTTLE. PER PT, SHE HAS BEEN HAVING LIQUID STOOLS FREQUENTLY. CALL LIGHT WITHIN REACH. ENCOURAGED TO USE BEDSIDE COMMODE. PT STATES SHE PREFERS TO WALK TO THE TOILET. CALL LIGHT WITHIN REACH. WILL CONTINUE TO MONITOR.
[2018-07-07] MEDS: KETOROLAC 30 MG/ML VIAL IM/IVP PRN (18:13)
--- NOTE | 2018-07-07 19:15 | NUR ---
REPORT GIVEN TO TANK FARM ATTENDANT NURSE.
--- NOTE | 2018-07-07 19:16 | NUR ---
RECEIVED REPORT FROM DAY SHIFT NURSE LILY-RN AT BEDSIDE. PT AOX4, CALM AND COOPERATIVE. PT FAMILY AT BEDSIDE. ON ROOM AIR WITH IV SITE RIGHT AC #22G- PATENT AND INFUSING KCL. DISCUSSED PLAN OF CARE AND PT VERBALIZED UNDERSTANDING. NO S/S OF RESPIRATORY DISTRESS OR DISCOMFORT NOTED AT THIS TIME. BED IN LOWEST POSITION, BED BREAKS ON, RIGHT SIDE RAIL UP- PT STATED SHE PREFERS LEFT SIDE RAIL TO BE KEPT DOWN TO BE ABLE TO GET OUT OF BED EASILY. EDUCATED PT ON BOTH SIDE RAILS UP TO PREVENT FALLS HOWEVER PT INSISTS ON HAVING LEFT SIDE RAIL DOWN. BED SIDE TABLE AND CALL LIGHT ARE WITHIN REACH. PT CONTINUES TO DRINK GOLYTELY. WILL CONTINUE TO MONITOR.
[2018-07-07 20:00] VITALS: BP 110/70
--- NOTE | 2018-07-07 20:00 | NUR ---
VITAL SIGNS TAKEN AFTER MULTIPLE ATTEMPTS TO TAKE BP. PT KEPT FEELING HER LEFT ARM CRAMP UP AND WOULD TAKE IT OFF. ON THIRD ATTEMPT THERE WAS NO SUCH EPISODE. PT TOLERATED WELL. NO S/S OF RESPIRATORY DISTRESS OR DISCOMFORT NOTED AT THIS TIME. WILL CONTINUE TO MONITOR.
--- NOTE | 2018-07-07 20:25 | NUR ---
SCHEDULED MEDICATIONS GIVEN AND TOLERATED WELL. NO S/S OF RESPIRATORY DISTRESS OR DISCOMFORT NOTED AT THIS TIME. WILL CONTINUE TO MONITOR.
--- NOTE | 2018-07-07 22:00 | NUR ---
PT SITTING COMFORTABLY IN BED WRITING IN WHAT APPEARS TO BE A JOURNAL. NO S/S OF RESPIRATORY DISTRESS OR DISCOMFORT NOTED AT THIS TIME. WILL CONTINUE TO MONITOR.
[2018-07-08] VITALS: BP 100/67
--- NOTE | 2018-07-08 | NUR ---
VITAL SIGNS TAKEN AND TOLERATED WELL. PT SITTING IN CHAIR READING A TEXTBOOK. PT STATED SHE COMPLETED HER GOLYTELY AND WAS SITTING IN THE CHAIR BECAUSE SHE WANTED TO MAKE SURE SHE WAS NO LONGER GOING TO THE BATHROOM BEFORE GOING BACK INTO BED TO SLEEP. NO S/S OF RESPIRATORY DISTRESS OR DISCOMFORT NOTED A THIS TIME. WILL CONTINUE TO MONITOR.
--- NOTE | 2018-07-08 02:00 | NUR ---
PT SLEEPING IN BED. NO S/S OF RESPIRATORY DISTRESS OR DISCOMFORT NOTED AT THIS TIME. WILL CONTINUE TO MONITOR.
[2018-07-08] MEDS: DEXT 5% /NACL 0.9% 1,000 ML IV SCH ×3 (02:54→22:54)
[2018-07-08 04:00] VITALS: BP 104/80
--- NOTE | 2018-07-08 04:00 | NUR ---
VITAL SIGNS TAKEN AND TOLERATED WELL. PT CONTINUES TO SLEEP. NO S/S OF RESPIRATORY DISTRESS OR DISCOMFORT NOTED AT THIS TIME. WILL CONTINUE TO MONITOR.
[2018-07-08] MEDS: metroNIDAZOLE 500 MG/NS PREMIX 100 ML IV SCH ×3 (05:01→21:23)
--- NOTE | 2018-07-08 05:01 | NUR ---
SCHEDULED MEDICATION FLAGYL GIVEN AND TOLERATED WELL. PT CONTINUES TO SLEEP. NO S/S OF RESPIRATORY DISTRESS OR DISCOMFORT NOTED AT THIS TIME. WILL CONTINUE TO MONITOR.
--- NOTE | 2018-07-08 05:53 | NUR ---
SPOKE WITH DR. FLORES ABOUT PT SCHEDULED MEDICATION NEUTRA-PHOS THAT IS MIXED WITH WATER/JUICE, HOWEVER SINCE PT IS NPO EXCEPT MEDS ORDERED TO HOLD SCHEDULED MEDICATION FOR PROCEDURE.
[2018-07-08] MEDS: SODIUM PHOS / POTASSIUM PHOS 1 PKT PDR PO SCH ×2 (05:55→11:30)
--- NOTE | 2018-07-08 06:00 | NUR ---
PT SLEEPING IN BED. NO S/S OF RESPIRATORY DISTRESS OR DISCOMFORT NOTED AT THIS TIME. WILL CONTINUE TO MONITOR.
--- NOTE | 2018-07-08 07:29 | NUR ---
ENDORSED PT CARE TO DAY SHIFT NURSE ROS FOR CONTINUITY OF CARE.
--- NOTE | 2018-07-08 07:30 | NUR ---
RECEIVED REPORT FROM FILM LOADER NURSE FADIA RN AT BEDSIDE. PT [id number], COOPERATIVE. NO S/S OF DISTRESS ON ROOM AIR, IV SITE RIGHT AC #22G, PATENT AND INTACT. DISCUSSED PLAN OF CARE AND PT VERBALIZED UNDERSTANDING. DENIES PAIN AT THIS TIME. PT HAD BOWEL PREP FOR PROCEDURE TODAY, NPO EX MEDS, MADE PT AWARE URINE SPECIMEN IS NEEDED. BED IN LOWEST POSITION, BED BREAKS ON, RIGHT SIDE RAIL UP, PT INSISTS TO HAVE LEFT SIDE RAIL DOWN SO SHE CAN GET OUT OF BED EASIER. BEDSIDE TABLE AND CALL LIGHT ARE WITHIN REACH. WILL CONTINUE TO MONITOR.
--- NOTE | 2018-07-08 07:54 | NUR ---
CM NOTE RECEIVED FAX FROM ALDA STATING [phone] DAISY PEREZ APPROVED 07/05/[address] PROCESS. NRD 07/12/18. PER ALDA BARRERA, NO NEED TO FAX DAILY REVIEWS UNTIL 07/12/18. FAXED PROGRESS NOTE AND CONSULTATION TO ALDA [phone].
[2018-07-08 08:00] VITALS: BP 127/70
--- NOTE | 2018-07-08 08:50 | NUR ---
URINE SPECIMEN SENT TO LAB. OK TO SHOWER BY DR GOODWIN.
[2018-07-08] MEDS: LISINOPRIL 20 MG TAB PO SCH (09:00)
[2018-07-08] MEDS: LACTOBACILLUS RHAMNOSUS GG 1 EACH CAP PO SCH (09:02)
[2018-07-08] MEDS: DOCUSATE SODIUM 100 MG GELCAP PO SCH ×2 (09:02→21:21)
[2018-07-08] MEDS: HYDROCHLOROTHIAZIDE 25 MG TAB PO SCH (09:02)
[2018-07-08 10:31] LABS: BARBITURATE, URINE NEG. ng/ml (NEG <=200); BENZODIAZEPINE, URINE NEG. ng/mL (NEG <=200); CANNABINOID, URINE NEG. ng/mL (NEG <=50); COCAINE, URINE NEG. ng/mL (NEG <=300); OPIATE, URINE POS. ng/mL (NEG <=2000); PHENCYCLIDINE SCREEN,URINE NEG. ng/mL (NEG <=25)
[2018-07-08 10:40] LABS: BASOPHILS % (AUTO) 0.5 % (0.0-2.0); EOSINOPHILS # (AUTO) 0.1 K/uL (0-0.4); EOSINOPHILS % (AUTO) 1.6 % (0.0-4.0); HEMATOCRIT 31.2 % (36-48); HEMOGLOBIN 10.6 g/dL (12.0-16.0); LYMPHOCYTES # (AUTO) 1.5 K/uL (2.5-16.5); LYMPHOCYTES % (AUTO) 19.6 % (20.5-51.1); MEAN CORPUSCULAR HEMOGLOBIN 30 pg (27-31); MEAN CORPUSCULAR HGB CONC 34 g/dL (33-37); MEAN CORPUSCULAR VOLUME 88.1 fL (80-94); MONOCYTES # (AUTO) 0.5 K/uL (0.8-1.0); MONOCYTES % (AUTO) 6.1 % (1.7-9.3); NEUTROPHILS # (AUTO) 5.7 K/uL (1.8-7.7); NEUTROPHILS % (AUTO) 72.2 % (42.2-75.2); PLATELET COUNT (AUTO) 240 K/uL (140-450); RED BLOOD CELL COUNT(AUTO) 3.54 MIL/uL (4.20-5.40); WHITE BLOOD COUNT (AUTO) 7.9 K/uL (4.8-10.8)
--- NOTE | 2018-07-08 11:00 | NUR ---
PATIENT HAVE NEW IV LINE ON RIGHT FOREARM GAUGE 22 INTACT AND PATENT GOOD BLOOD RETURN. BUT PATIENT REFUSED TO HAVE IVF RUNNING NOTIFIED .
[2018-07-08 11:07] LABS: ANION GAP 9.9 (8-16); CARBON DIOXIDE 31.2 mmol/L (21-32); CREATININE 0.8 mg/dL (0.6-1.3); POTASSIUM 3.1 mmol/L (3.5-5.1)
[2018-07-08] MEDS: KETOROLAC 30 MG/ML VIAL IM/IVP PRN ×3 (11:34→23:21)
--- NOTE | 2018-07-08 11:40 | NUR ---
C/O OF ABDOMINAL PAIN 07/20 ON PAIN SCALE MEDICATED WITH TORADOL 30 MG IVP , VITALS STABLE WILL OBSERVE PATIENT. Addendum: 07/08/18 at 1251 by Kaitlyn Rao RN PAIN SCALE 7/10 NOT 9/10 Addendum: 07/08/18 at 1310 by Kaitlyn Rao RN WRONG ENTRY DISREGARD THE NOTE
--- NOTE | 2018-07-08 11:52 | NUR ---
NEUTRA PHOS NOT GIVEN. PT'S PHOSPHORUS LEVEL 3.2 IS GOOD TODAY. WILL ASK DR TO DC. Addendum: 07/08/18 at 1315 by Gurinder Murray RN PT IS NPO FOR PROCEDURE, DR DO NOT WANT TO GIVE THE MED WITH LARGE AMOUNT OF WATER. HOLD PER MD ORDER.
[2018-07-08 12:00] VITALS: BP 154/76
--- NOTE | 2018-07-08 12:30 | NUR ---
PT EATING LUNCH INDEPENDENTLY, NO S/S OF DISTRESS.
[2018-07-08] MEDS ORDERED: MIDAZOLAM 2 MG/2 ML VIAL ONE ×2 (12:34)
[2018-07-08] MEDS ORDERED: fentaNYL 0.05 MG/ML VIAL ONE (12:34)
[2018-07-08] MEDS: MIDAZOLAM 2 MG/2 ML VIAL IVP SCH ×2 (12:42→13:15)
[2018-07-08] MEDS: fentaNYL 0.05 MG/ML VIAL IVP SCH ×2 (12:43→13:15)
[2018-07-08] MEDS: LIDOCAINE 2% 100 MG/5 ML UJET TP ONE ×2 (12:46→13:38)
--- NOTE | 2018-07-08 13:24 | NUR ---
OFFERED PT HEMORRHOID OINTMENT. PT REFUSED, STATED IT'S NOT WORKING.
[2018-07-08] MEDS: HYDROcodone/APAP 10/325 MG 1 TAB TAB PO PRN (13:28)
[2018-07-08] MEDS ORDERED: POTASSIUM CHLORIDE 40 MEQ, LIDOCAINE 1% 25 MG in NACL 0.9% 250 ML IV ONE (14:00)
--- NOTE | 2018-07-08 14:00 | NUR ---
CONSENT SIGNED FOR HEMORRHOIDECTOMY TOMORROW, PROVIDED CLEAR LIQUID TRAY NOW. NPO AFTER MIDNIGHT.
[2018-07-08 15:57] VITALS: BP 116/69
--- NOTE | 2018-07-08 19:20 | NUR ---
ENDORSED PT TO WOVEN WOOD SHADE ASSEMBLER NURSE FOR CONTINUITY OF CARE. PT IN STABLE CONDITION
--- NOTE | 2018-07-08 19:20 | NUR ---
RECEIVED REPORT FROM DAY SHIFT NURSE AT PT BEDSIDE. PT IN STABLE CONDITION. FAMILY IS AT BEDSIDE. PT IS LAYING ON HER STOMACH AND STATES THAT IT IS A MORE COMFORTABLE POSITION AND HELPS TO RELIEVE THE PAIN. PT IS A/O X4. SKIN IS INTACT. IV ACCESS IN R FA 22G WITH IVF RUNNING PER MD ORDERS. IV IS PATENT AND INTACT. INFORMED PT SHE IS SCHEDULED TO BE PLACED ON NPO AFTER MIDNIGHT. PT VERBALIZED UNDERSTANDING. PT C/O OF MILD PAIN BUT DOES NOT WNAT MEDICATION AT THIS TIME. BED IS LOCKED, LOW POSTION AND SIDE RAILS UP X2. BOARD UPDATED. CALL LIGHT IS WITHIN REACH. WILL CONTINUE TO MONITOR PT.
[2018-07-08 20:00] VITALS: BP 126/60
--- NOTE | 2018-07-08 21:23 | NUR ---
ADMINISTERED SCHEDULED MEDS. PT TOLERATED WELL. ALL NEEDS ARE MET AT THIS TIME. WILL CONTINUE TO MONITOR.
--- NOTE | 2018-07-08 23:21 | NUR ---
PT C/O PAIN. TORADOL GIVEN. WILL CONTINUE TO MONITOR PT.
[2018-07-09] VITALS: BP 121/70
--- NOTE | 2018-07-09 01:05 | NUR ---
PT ASLEEP IN BED. NO SIGNS OF DISTRESS. WILL CONTINUE TO MONITOR.
--- NOTE | 2018-07-09 03:22 | NUR ---
NO CHANGE IN CONDITION. WILL CONTINUE TO MONITOR PT.
[2018-07-09 04:00] VITALS: BP 122/71
[2018-07-09] MEDS: metroNIDAZOLE 500 MG/NS PREMIX 100 ML IV SCH ×3 (04:54→20:27)
--- NOTE | 2018-07-09 04:55 | NUR ---
ADMINISTERED SCHEDULED MEDICATION. PT TOLERATING WELL. WILL CONTINUE TO MONITOR.
[2018-07-09 06:17] LABS: BASOPHILS % (AUTO) 0.5 % (0.0-2.0); EOSINOPHILS # (AUTO) 0.1 K/uL (0-0.4); EOSINOPHILS % (AUTO) 2.2 % (0.0-4.0); HEMATOCRIT 29.7 % (36-48); LYMPHOCYTES # (AUTO) 2.3 K/uL (2.5-16.5); MEAN CORPUSCULAR HEMOGLOBIN 30 pg (27-31); MEAN CORPUSCULAR HGB CONC 34 g/dL (33-37); MEAN CORPUSCULAR VOLUME 88.8 fL (80-94); MONOCYTES # (AUTO) 0.5 K/uL (0.8-1.0); MONOCYTES % (AUTO) 7.8 % (1.7-9.3); NEUTROPHILS # (AUTO) 3.6 K/uL (1.8-7.7); NEUTROPHILS % (AUTO) 54.5 % (42.2-75.2); PLATELET COUNT (AUTO) 193 K/uL (140-450); RED BLOOD CELL COUNT(AUTO) 3.35 MIL/uL (4.20-5.40); RED CELL DISTRIBUTION WIDTH 14.8 % (11.6-13.7); WHITE BLOOD COUNT (AUTO) 6.6 K/uL (4.8-10.8)
[2018-07-09 06:20] LABS: ANION GAP 6.5 (8-16); CARBON DIOXIDE 31.4 mmol/L (21-32); CREATININE 0.8 mg/dL (0.6-1.3)
[2018-07-09 06:24] LABS: MAGNESIUM 1.7 mg/dL (1.8-2.4); PHOSPHORUS 3.8 mg/dL (2.5-4.9)
[2018-07-09 06:35] LABS: POTASSIUM 2.9 mmol/L (3.5-5.1)
--- NOTE | 2018-07-09 06:42 | NUR ---
LAB CALLED WITH CRITICAL VALUE K 2.9. MADE AWARE.
--- NOTE | 2018-07-09 07:27 | NUR ---
ENDORSED PT TO DAY SHIFT NURSE FOR CONTINUITY OF CARE. PT IN STABLE CONDITION.
--- NOTE | 2018-07-09 07:28 | NUR ---
RECEIVED REPORT FROM LAY OUT HELPER RN. PATIENT IS AAOX4, HAS NO SIGNS AND SYMPTOMS OF ACUTE DISTRESS NOTED AT THIS TIME. HAS IV TO THE RIGHT FA 22G INFUSING D5NS AT 100. SITE IS CLEAN, DRY, PATENT AND INTACT. PATIENT HAS PAIN AT THIS TIME, WILL MEDICATE. DISCUSSED PLAN OF CARE WITH PATIENT AND SHE VERBALIZED UNDERSTANDING. BED IN LOWEST POSITION, SIDE RAILS UP X2, CALL LIGHT WITHIN REACH. WILL CONTINUE TO MONITOR.
[2018-07-09] MEDS: KETOROLAC 30 MG/ML VIAL IM/IVP PRN ×3 (07:34→20:28)
[2018-07-09 08:00] VITALS: BP 132/78
[2018-07-09] MEDS ORDERED: POTASSIUM CHLORIDE 40 MEQ, LIDOCAINE 1% 25 MG in NACL 0.9% 250 ML IV SCH (08:00)
[2018-07-09] MEDS: DOCUSATE SODIUM 100 MG GELCAP PO SCH (09:00)
[2018-07-09] MEDS: LISINOPRIL 20 MG TAB PO SCH (09:00)
[2018-07-09] MEDS: HYDROCHLOROTHIAZIDE 25 MG TAB PO SCH (09:00)
[2018-07-09] MEDS: LACTOBACILLUS RHAMNOSUS GG 1 EACH CAP PO SCH (09:00)
[2018-07-09] MEDS ORDERED: MAGNESIUM OXIDE 400 MG TAB PO SCH (09:30)
[2018-07-09] MEDS: DEXT 5% /NACL 0.9% 1,000 ML IV SCH (09:46)
[2018-07-09 12:00] VITALS: BP 134/57
--- NOTE | 2018-07-09 14:04 | NUR ---
07/09/18 RD INITIAL ASSESSMENT COMPLETED PLEASE REFER TO NUTRITION ASSESSMENT UNDER CARE ACTIVITY FOR ESTIMATED NUTRITIONAL NEEDS. 1. CONTINUE NPO MEDICALLY APPROPRIATE 2. IF/WHEN PT IS MEDICALLY STABLE, CONSIDER ADVANCING DIET TO CCHO CLEAR LIQUID TOLERATED. 3. PROVIDED NUTRITION EDUCATION ON DIABETES 4. RD TO FOLLOW-UP 3-5 DAYS, MODERATE RISK PAIGE YEPEZ RD
[2018-07-09] MEDS ORDERED: ONDANSETRON 4 MG/2 ML VIAL IVP PRN (14:30)
[2018-07-09] MEDS ORDERED: MORPHINE SULFATE 4 MG/ML SYR IVP PRN (14:30)
[2018-07-09] MEDS ORDERED: ACETAMINOPHEN EXTRA STRENGTH 500 MG TAB PO PRN (14:30)
--- NOTE | 2018-07-09 15:28 | NUR ---
PATIENT IS BEING TAKEN TO THE OR.
[2018-07-09 15:36] LABS: POTASSIUM 3.7 mmol/L (3.5-5.1)
[2018-07-09 15:43] LABS: CARBON DIOXIDE 27.7 mmol/L (21-32)
[2018-07-09] MEDS ORDERED: BUPIVACAINE-MPF/EPI 0.5% 30 ML VIAL INJ ONE (15:50)
[2018-07-09] MEDS ORDERED: fentaNYL 0.05 MG/ML VIAL ONE (16:07)
[2018-07-09] MEDS ORDERED: BUPIVACAINE/DEXT 0.75% SPINAL 2 ML AMP INJ ONE (16:08)
[2018-07-09] MEDS ORDERED: MIDAZOLAM 2 MG/2 ML VIAL ONE (16:08)
--- NOTE | 2018-07-09 16:30 | NUR ---
PATIENT BACK FROM SURGERY. STABLE AT THIS TIME.
[2018-07-09 17:00] VITALS: BP 165/97
[2018-07-09] MEDS ORDERED: NACL 0.9% 1,000 ML IV SCH (17:40)
--- NOTE | 2018-07-09 18:00 | NUR ---
INFORMED DR FLORES OF PATIENTS BLOOD PRESSURE BEING ELEVATED. NO NEW ORDERS AT THIS TIME. WILL CONTINUE TO MONITOR.
--- NOTE | 2018-07-09 19:20 | NUR ---
ENDORSED PATIENT TO TECHNICAL SERVICES REP RN FOR CONTINUITY OF CARE. PATIENT IN STABLE CONDITION.
--- NOTE | 2018-07-09 19:21 | NUR ---
RECEIVED REPORT FROM DAY SHIFT NURSE AT PATIENT BEDSIDE. PT IN STABLE CONDITION. FAMILY IS AT BEDSIDE. PT IS A/O X4. PT IS ON RA. SKIN IS INTACT. PT C/O MILD PAIN BUT IS NOT REQUESTING MEDICATION AT THIS TIME. TOLD PT TO LET ME KNOW WHEN SHE WOULD LIKE MEDICATION FOR THE PAIN. IV ACCESS IN R FA 22G WITH IVF RUNNING PER MD ORDERS. IV IS PATENT AND INTACT. BED IS LOCKED, LOW POSITION WITH SIDE RAILS UP X2. BOARD UPDATED. CALL LIGHT IS WITHIN REACH. WILL CONTINUE TO MONITOR PT.
[2018-07-09 20:00] VITALS: BP 108/77
--- NOTE | 2018-07-09 20:28 | NUR ---
PT C/O PAIN. TORADOL GIVEN. PT TOLERATED WELL. NO SIGNS OF DISTRESS. WILL CONTINUE TO MONITOR.
--- NOTE | 2018-07-09 21:00 | NUR ---
PER Barbara LAW, PATIENT PARAMETER SETTING CHANGED TO HR 40 BECAUSE IT KEEPS ALARMING AND IT BOTHERS PATIENTS RESTING.
--- NOTE | 2018-07-09 22:51 | NUR ---
PT IS ASLEEP IN BED. NO S/SX OF DISTRESS. WILL CONTINUE TO MONITOR PT.
[2018-07-10] VITALS: BP 129/75
--- NOTE | 2018-07-10 00:13 | NUR ---
NO CHANGE IN CONDITION. NO SIGNS OF DISTRESS. WILL CONTINUE TO MONITOR PT.
--- NOTE | 2018-07-10 02:27 | NUR ---
NO CHANGE IN CONDITION. WILL CONTINUE TO MONITOR PT.
[2018-07-10 04:00] VITALS: BP 127/75
[2018-07-10] MEDS: metroNIDAZOLE 500 MG/NS PREMIX 100 ML IV SCH (04:50)
--- NOTE | 2018-07-10 04:50 | NUR ---
ADMINISTERED ORDERED MEDICATION. PT TOLERATING WELL. WILL CONTINUE TO MONITOR.
[2018-07-10 06:37] LABS: BASOPHILS % (AUTO) 0.4 % (0.0-2.0); EOSINOPHILS # (AUTO) 0.1 K/uL (0-0.4); EOSINOPHILS % (AUTO) 1.8 % (0.0-4.0); HEMATOCRIT 29.9 % (36-48); HEMOGLOBIN 10.2 g/dL (12.0-16.0); LYMPHOCYTES # (AUTO) 2.1 K/uL (2.5-16.5); LYMPHOCYTES % (AUTO) 26.6 % (20.5-51.1); MEAN CORPUSCULAR HEMOGLOBIN 30 pg (27-31); MEAN CORPUSCULAR HGB CONC 34 g/dL (33-37); MEAN CORPUSCULAR VOLUME 88.4 fL (80-94); MONOCYTES # (AUTO) 0.5 K/uL (0.8-1.0); MONOCYTES % (AUTO) 6.6 % (1.7-9.3); NEUTROPHILS # (AUTO) 5.2 K/uL (1.8-7.7); NEUTROPHILS % (AUTO) 64.6 % (42.2-75.2); PLATELET COUNT (AUTO) 205 K/uL (140-450); RED BLOOD CELL COUNT(AUTO) 3.38 MIL/uL (4.20-5.40); RED CELL DISTRIBUTION WIDTH 15.1 % (11.6-13.7); WHITE BLOOD COUNT (AUTO) 8.1 K/uL (4.8-10.8)
[2018-07-10] MEDS: KETOROLAC 30 MG/ML VIAL IM/IVP PRN (06:41)
--- NOTE | 2018-07-10 06:41 | NUR ---
PT C/O PAIN. TORADOL GIVEN. WILL CONTINUE TO MONITOR PT.
[2018-07-10 07:02] LABS: ANION GAP 8.9 (8-16); CARBON DIOXIDE 28.4 mmol/L (21-32); CREATININE 0.7 mg/dL (0.6-1.3); POTASSIUM 3.3 mmol/L (3.5-5.1)
[2018-07-10 07:06] LABS: MAGNESIUM 1.6 mg/dL (1.8-2.4); PHOSPHORUS 3.9 mg/dL (2.5-4.9)
--- NOTE | 2018-07-10 07:16 | NUR ---
ENDORSED PT TO DAY SHIFT NURSE FOR CONTINUITY OF CARE. PT IN STABLE CONDITION.
--- NOTE | 2018-07-10 07:17 | NUR ---
RECEIVED REPORT FROM SOLAR SALES SPECIALIST RN. PATIENT IS AAOX4, HAS NO SIGNS AND SYMPTOMS OF ACUTE DISTRESS NOTED AT THIS TIME. HAS IV TO THE RIGHT FA 22G INFUSING NS AT 50ML/HR. SITE IS CLEAN, DRY, PATENT AND INTACT. PATIENT HAS PAIN AT THIS TIME, WILL MEDICATE. DISCUSSED PLAN OF CARE WITH PATIENT AND SHE VERBALIZED UNDERSTANDING. BED IN LOWEST POSITION, SIDE RAILS UP X2, CALL LIGHT WITHIN REACH. WILL CONTINUE TO MONITOR.
[2018-07-10 08:00] VITALS: BP 122/78
[2018-07-10] MEDS ORDERED: ACET-8386 PO (08:03)
[2018-07-10] MEDS ORDERED: DOCU-299 PO (08:03)
[2018-07-10] MEDS ORDERED: PSYLLIUM 12.2 GM/PKT PO SCH (09:00)
[2018-07-10] MEDS ORDERED: DOCUSATE 100 MG/10 ML UDC GT SCH (09:00)
[2018-07-10] MEDS: HYDROCHLOROTHIAZIDE 25 MG TAB PO SCH (09:46)
[2018-07-10] MEDS: LISINOPRIL 20 MG TAB PO SCH (09:47)
[2018-07-10] MEDS: LACTOBACILLUS RHAMNOSUS GG 1 EACH CAP PO SCH (09:47)
[2018-07-10] MEDS ORDERED: POTASSIUM CHLORIDE 10 MEQ TABER PO SCH (10:00)
[2018-07-10] MEDS ORDERED: MAGNESIUM OXIDE 400 MG TAB PO SCH (10:30)
--- NOTE | 2018-07-10 11:30 | NUR ---
ADMINISTERED K-DUR AND MAG OXIDE. PATIENT TOLERATED WELL.
--- NOTE | 2018-07-10 12:55 | NUR ---
HAS DISCHARGE ORDER IN PLACE. GAVE PATIENT INFORMATION ON DISCHARGE INSTRUCTIONS. INFORMED HER THAT SHE HAS PRESCRIPTIONS IN HER PACKET. GAVE HER A DOCTORS NOTE TO EXCUSE HER FROM WORK. PATIENT VERBALIZED UNDERSTANDING TO ALL THE INSTRUCTIONS GIVEN TO HER. REMOVED IV FROM SITE, CATHETER INTACT. REMOVED ID BAND. ALL BELONGINGS ARE WITH THE PATIENT. HAS NO SIGNS AND SYMPTOMS OF ACUTE DISTRESS NOTED AT THIS TIME. WILL WALK OUT WITH PATIENT.
== END 2018-07-10 12:55 | disposition home or self-care (01) | DRG 254 ==
LOC: MED 01:33 → MTU 03:09
PROVIDERS: ADMIT General Practice; ATTEND General Practice
PROC: 0DJD8ZZ Inspection of Lower Intestinal Tract, Via Natural or Artificial Opening Endoscopic (ICD-10-PCS; principal; 2018-07-08 12:30)
DX: K60.2 Anal fissure, unspecified (principal); E83.39 Other disorders of phosphorus metabolism; K64.8 Other hemorrhoids; E87.6 Hypokalemia; I10 Essential (primary) hypertension; E87.1 Hypo-osmolality and hyponatremia; K64.4 Residual hemorrhoidal skin tags; E83.42 Hypomagnesemia; R00.1 Bradycardia, unspecified; E11.9 Type 2 diabetes mellitus without complications; E66.9 Obesity, unspecified; Z68.32 Body mass index [BMI] 32.0-32.9, adult; Z79.899 Other long term (current) drug therapy; Z90.49 Acquired absence of other specified parts of digestive tract; Z90.722 Acquired absence of ovaries, bilateral; Z79.84 Long term (current) use of oral hypoglycemic drugs
CPT/HCPCS: 36415; 45330; 71045; 80048; 80053; 80305; 81025; 82150; 83036; 83690; 83735; 83880; 84100; 84439; 84443; 84484; 85025; 85610; 85730; 87081; 93005; 96365; 96375; 99285; J1885; J2001; J2250; J2270; J2405; J3010; J3480; J3490; J7030; J7042; Q0092; Q9967

== ENCOUNTER 2019-08-02 14:54 | Emergency (ER) | payer OTHER ==
[~2019-08-02] VITALS: Ht 162.6 cm; Wt 83.9 kg
[2019-08-02 14:54] VITALS: BP 154/107
[~2019-08-02 14:54] MED LIST changes: +ACET-8386 PO; -ACET-9525 PO; +DOCU-299 PO; -LEVO750T2 PO; -NIFE30TE8 PO; -ORE25; +ORE25 PO
--- NOTE | 2019-08-02 14:54 | NUR ---
PT TRANSFERRED TO WHEELCHAIR TO [facility].
--- NOTE | 2019-08-02 17:18 | NUR ---
PT taken to bed 04 by wheelchair.
--- NOTE | 2019-08-02 17:26 | NUR ---
DR. VALDEZ IS BEDSIDE TO ASSESS PT.
--- NOTE | 2019-08-02 18:09 | NUR ---
PT WAS W/C'D TO [facility]. URINE SAMPLE OBTAINED. PT C/O PAIN ON BACK 06/19. DR. VALDEZ WAS NOTIFIED.
[2019-08-02] MEDS ORDERED: KETOROLAC 30 MG/ML VIAL IM ONE (18:20)
[2019-08-02] MEDS ORDERED: DEXAMETHASONE 10 MG/ML VIAL IM ONE (18:20)
--- NOTE | 2019-08-02 18:33 | NUR ---
PT WAS MEDICATED WITH TORADOL AND DECADRONE IM PER MD ORDER. URINE DIP DONE.
[2019-08-02] MEDS ORDERED: HYDROcodone/APAP 5/325 MG 1 TAB TAB PO ONE (19:10)
[2019-08-02] MEDS ORDERED: cefTRIAXone 1,000 MG VIAL ONE (19:16)
[2019-08-02] MEDS ORDERED: MORPHINE SULFATE 4 MG/ML SYR IVP ONE (20:20)
[2019-08-02 20:36] VITALS: BP 154/98
--- NOTE | 2019-08-02 20:36 | NUR ---
PT DISCHARGED WITH PAPERWORK. RX PAOLO SILVERMAN. EDUCATED PT REGARDING MEDICATIONS AND S/E. EDUCATED PT REGARDING D/C DIAGNOSIS. PT VERBALIZED UNDERSTANDING OF TEACHING. TOLD PT TO FOLLOW UP WITH PCP AND WHEN TO RETURN TO ED. PT VSS, C/O OF PAIN AMBULATING. ERPA AWARE AND EDUCATED PT. ALL QUESTIONS ANSWERED. PT WHEELCHAIRED TO CAR WITH .
== END 2019-08-02 20:36 | disposition home or self-care (01) ==
LOC: MED 14:54
DX: S39.012A Strain of muscle, fascia and tendon of lower back, initial encounter (principal); I10 Essential (primary) hypertension; E11.9 Type 2 diabetes mellitus without complications; Z79.899 Other long term (current) drug therapy; Z79.1 Long term (current) use of non-steroidal anti-inflammatories (NSAID); X50.0XXA Overexertion from strenuous movement or load, initial encounter; Y93.89 Activity, other specified; Y92.89 Other specified places as the place of occurrence of the external cause; Y99.0 Civilian activity done for income or pay
CPT/HCPCS: 81002; 81025; 96365; 96372; 96375; 99283; J0696; J1100; J1885; J2270; 96374